=== PATIENT | female | born 1995 | race Caucasian/White ===

== ENCOUNTER 2016-08-21 13:27 | Emergency (ER) | payer BC ==
[~2016-08-21] VITALS: Ht 160 cm; Wt 57.2 kg
[2016-08-21 13:52] VITALS: Ht 160 cm; Wt 57.2 kg
[2016-08-21] MEDS ORDERED: ALUMINUM/MAGNESIUM SUSP 30 ML UDC PO STA (14:06)
[2016-08-21] MEDS ORDERED: LIDOCAINE HCL 2% VISC SOLN 20 ML UDC PO STA (14:06)
[2016-08-21] MEDS ORDERED: SODIUM CHLORIDE 0.9% 1000ML 1,000 ML IV STA ×2 (14:06→16:07)
[2016-08-21 14:38] LABS: BASO % 0.8 %; BASO ABS # 0.04 K/uL (0-0.2); COMPLETE YES; IG% 0.4 %; LYMPH % 9.5 %; LYMPH ABS # 0.48 K/uL (1.2-3.4); MEAN CELL VOLUME 86.3 fL (80-100); MEAN CORPUSCULAR HEMOGLOBIN 29.9 pg (25-34); MEAN CORPUSCULAR HGB CONC 34.6 g/dl (32-36); MEAN PLATELET VOLUME 10.1 fL (7.4-10.4); MONO % 5.2 %; NEUT % 83.1 %; PLATELET COUNT 185 K/uL (130-400); RED BLOOD COUNT 4.52 M/uL (4.2-5.4); WHITE BLOOD COUNT 5.03 K/uL (4.8-10.8)
[2016-08-21 14:49] LABS: PROTHROMBIN TIME (PATIENT) 10.2 SECONDS (9.0-12.0)
[2016-08-21] MEDS ORDERED: BCPILLS PO (14:56)
[2016-08-21 15:00] LABS: ALT/SGPT 16 U/L (12-78); AST/SGOT 12 U/L (15-37); BLOOD UREA NITROGEN 11 mg/dl (7-18); BUN/CREATININE RATIO 13.3 (10-20); CALCIUM 8.7 mg/dl (8.5-10.1); CARBON DIOXIDE 25 mmol/L (21-32); CHLORIDE 102 mmol/L (98-107); CREATININE 0.85 mg/dl (0.60-1.20); GLUCOSE 100 mg/dl (70-99); SODIUM 138 mmol/L (136-145)
--- NOTE | 2016-08-21 15:03 | DIAGNOSTIC IMAGING REPORT ---
CHEST 2 VIEWS ROUTINE CLINICAL HISTORY: Cough. Fever. COMPARISON STUDY: No previous studies for comparison. FINDINGS: Lung volumes are normal. There is no pneumothorax or pleural effusion. Cardiac size is normal. Mediastinal contours are normal. There is no evidence of pulmonary edema. IMPRESSION: No acute cardiopulmonary findings. Electronically signed by: Asad Ingram M.D. 08/21/2016 3:02 PM Dictated Date/Time: 08/21/2016 3:01 PM
[2016-08-21 15:05] LABS: ALKALINE PHOSPHATASE 50 U/L (45-117)
[2016-08-21] MEDS ORDERED: HYDROCODONE/ACETAMOPHEN 5/325MG TAB PO STA (15:06)
[2016-08-21] MEDS ORDERED: OPTIRAY 320 IV PRN (15:15)
[2016-08-21 15:52] VITALS: BP 112/65; O2SAT 96; O2SAT 97
--- NOTE | 2016-08-21 15:54 | DIAGNOSTIC IMAGING REPORT ---
CT ANGIOGRAM OF THE CHEST CLINICAL HISTORY: Atypical chest pain. COMPARISON STUDY: Chest radiograph dated 08/21/2016. TECHNIQUE: Following the IV administration of 9 the cc of Optiray 320, CT angiogram of the chest was performed from the upper abdomen to the thoracic inlet utilizing the pulmonary embolus protocol. Images are reviewed in the axial, sagittal, and coronal planes. 3-D MIPS images are created and assessed. IV contrast was administered without complication. The examination is modestly degraded by motion artifact. CT DOSE: 182.59 mGy.cm FINDINGS: Thyroid: Imaged portions of the thyroid gland are normal in size and attenuation. Thoracic aorta: The thoracic aorta is normal in caliber and demonstrates standard 3-vessel arch anatomy. No dissection is seen. Pulmonary vasculature: The pulmonary trunk is normal in caliber. There are no filling defects identified in main, lobar, or segmental pulmonary branches to suggest pulmonary embolus. Heart: The heart is normal in size and configuration, and without pericardial effusion. Lungs and pleural spaces: Evaluation of the lung parenchyma is modestly degraded by large part ring motion artifact. The lungs and pleural spaces are clear. The trachea and central airways are patent. Mediastinum: There is no mediastinal lymphadenopathy. Chanel: Clear. Axillae: There is no axillary lymphadenopathy. Upper abdomen: Partially visualized upper abdominal viscera is within normal limits. Skeletal structures: No lytic or blastic bony lesions are seen. IMPRESSION: 1. There is no evidence of pulmonary embolus in the main, lobar, or segmental pulmonary arteries. 2. The lungs are clear. Electronically signed by: Koko Daniels M.D. 08/21/2016 3:53 PM Dictated Date/Time: 08/21/2016 3:49 PM
[2016-08-21 15:55] VITALS: PULSE 127
[2016-08-21] MEDS ORDERED: IBUPROFEN 600 MG TAB PO STA (16:59)
[2016-08-21 17:06] VITALS: TEMP 37.6
--- NOTE | 2016-08-21 17:20 | EMERGENCY ROOM VISIT NOTE ---
History First contact with patient: 13:57 Chief Complaint: FLU LIKE SX Stated Complaint: CHEST PAIN, FEVER,DIF BREATHING,CHILLS,COUGH,ACHE History of Present Illness The patient is a 21 year old female who presents to the Emergency Room being sent here by urgent care with complaints of chest pain which began last night after having a bout with severe reflux for 3 days. The patient states that she had burning in the chest, nausea and vomiting for 3 days. She was taking her Prilosec and Tums with little relief. She states that subsided last evening and then she started getting the pain in the chest which is constant which she describes as burning and sharp in nature. The patient denies any chest tightness. The patient was seen in urgent care and told to come to the emergency room for further evaluation. The patient states when she woke up this morning she had a dry cough and a temperature of 100.6. The patient denies any ear pain but does admit to sore throat secondary to coughing and throwing up. The patient denies any head congestion or runny nose. The patient admits she feels achy all over. The patient has a history of asthma. She has not used any of her inhalers. The patient admits to being on control pills. She denies smoking. The patient denies any recent travel or recent surgery. The patient denies any recent leg pain. She is a college student. Review of Systems 10 system review was performed and was negative unless stated otherwise history of present illness. Past Medical/Surgical History Asthma, reflux Social History Smoking Status: Never Smoker Smokeless Tobacco Use: No Marital Status: single Housing Status: lives with roommate Occupation Status: [employer] student Current/Historical Medications Scheduled Control Pills ( Control Pills), 1 TAB PO DAILY Allergies Coded Allergies: No Known Allergies (Unverified , 08/21/16) Physical Exam Vital Signs Date Time Temp Pulse Resp B/P Pulse Ox O2 Delivery O2 Flow Rate FiO2 08/21/16 17:06 37.6 08/21/16 15:55 127 08/21/16 15:52 97 Room Air 08/21/16 15:52 123 18 112/65 96 Room Air 08/21/16 13:52 37.6 125 20 111/71 100 Room Air Physical Exam PHYSICAL EXAM: Vital Signs were reviewed. Temperature 37.6, blood pressure 111/ 71, pulse 125, respirations 20: Reviewed Nurse's notes and agree. Oxygen saturation is 100 % on room air which is normal . GENERAL: 21-year-old female appears in no acute distress. MENTAL STATUS: Alert, oriented, coherent. EARS: Canals clear. TMs good light reflex, no erythema or fluid level noted. NOSE: Nasal mucosa with moderate erythema engorgement. PHARYNX: No erythema, no edema noted. No exudate noted. Airway is adequate. NECK: Supple, non-tender. No lymphadenopathy noted. LUNGS: Clear to auscultation without wheezes rales or rhonchi. CARDIAC: Regular rate and rhythm without murmur. SKIN: No rashes noted. LOWER EXTREMITIES: No cyanosis or edema noted. Calves are nontender. No palpable cords noted. Negative Homans bilaterally. Medical Decision & Procedures ER Provider Diagnostic Interpretation: CHEST 2 VIEWS ROUTINE CLINICAL HISTORY: Cough. Fever. COMPARISON STUDY: No previous studies for comparison. FINDINGS: Lung volumes are normal. There is no pneumothorax or pleural effusion. Cardiac size is normal. Mediastinal contours are normal. There is no evidence of pulmonary edema. IMPRESSION: No acute cardiopulmonary findings. Electronically signed by: Asad Ingram M.D. CT ANGIOGRAM OF THE CHEST CLINICAL HISTORY: Atypical chest pain. COMPARISON STUDY: Chest radiograph dated 08/21/2016. TECHNIQUE: Following the IV administration of 9 the cc of Optiray 320, CT angiogram of the chest was performed from the upper abdomen to the thoracic inlet utilizing the pulmonary embolus protocol. Images are reviewed in the axial, sagittal, and coronal planes. 3-D MIPS images are created and assessed. IV contrast was administered without complication. The examination is modestly degraded by motion artifact. CT DOSE: 182.59 mGy.cm FINDINGS: Thyroid: Imaged portions of the thyroid gland are normal in size and attenuation. Thoracic aorta: The thoracic aorta is normal in caliber and demonstrates standard 3-vessel arch anatomy. No dissection is seen. Pulmonary vasculature: The pulmonary trunk is normal in caliber. There are no filling defects identified in main, lobar, or segmental pulmonary branches to suggest pulmonary embolus. Heart: The heart is normal in size and configuration, and without pericardial effusion. Lungs and pleural spaces: Evaluation of the lung parenchyma is modestly degraded by large part ring motion artifact. The lungs and pleural spaces are clear. The trachea and central airways are patent. Mediastinum: There is no mediastinal lymphadenopathy. Chanel: Clear. Axillae: There is no axillary lymphadenopathy. Upper abdomen: Partially visualized upper abdominal viscera is within normal limits. Skeletal structures: No lytic or blastic bony lesions are seen. IMPRESSION: 1. There is no evidence of pulmonary embolus in the main, lobar, or segmental pulmonary arteries. 2. The lungs are clear. Electronically signed by: Koko Daniels M.D. 08/21/2016 3:53 PM Dictated Date/Time: 08/21/2016 3:49 PM 08/21/2016 3:02 PM Laboratory Results 08/21/16 14:25 Red Blood Count 4.52, Mean Corpuscular Volume 86.3, Mean Corpuscular Hemoglobin 29.9, Mean Corpuscular Hemoglobin Concent 34.6, Mean Platelet Volume 10.1, Neutrophils (%) (Auto) 83.1, Lymphocytes (%) (Auto) 9.5, Monocytes (%) (Auto) 5.2, Eosinophils (%) (Auto) 1.0, Basophils (%) (Auto) 0.8, Neutrophils # (Auto) 4.18, Lymphocytes # (Auto) 0.48, Monocytes # (Auto) 0.26, Eosinophils # (Auto) 0.05, Basophils # (Auto) 0.04 08/21/16 14:25 Test 08/21/16 14:25 08/21/16 14:33 08/21/16 14:45 White Blood Count 5.03 K/uL (4.8-10.8) Red Blood Count 4.52 M/uL (4.2-5.4) Hemoglobin 13.5 g/dL (12.0-16.0) Hematocrit 39.0 % (37-47) Mean Corpuscular Volume 86.3 fL (80-100) Mean Corpuscular Hemoglobin 29.9 pg (25-34) Mean Corpuscular Hemoglobin Concent 34.6 g/dl (32-36) Platelet Count 185 K/uL (130-400) Mean Platelet Volume 10.1 fL (7.4-10.4) Neutrophils (%) (Auto) 83.1 % Lymphocytes (%) (Auto) 9.5 % Monocytes (%) (Auto) 5.2 % Eosinophils (%) (Auto) 1.0 % Basophils (%) (Auto) 0.8 % Neutrophils # (Auto) 4.18 K/uL (1.4-6.5) Lymphocytes # (Auto) 0.48 K/uL (1.2-3.4) Monocytes # (Auto) 0.26 K/uL (0.11-0.59) Eosinophils # (Auto) 0.05 K/uL (0-0.5) Basophils # (Auto) 0.04 K/uL (0-0.2) RDW Standard Deviation 37.5 fL (36.4-46.3) RDW Coefficient of Variation 12.0 % (11.5-14.5) Immature Granulocyte % (Auto) 0.4 % Immature Granulocyte # (Auto) 0.02 K/uL (0.00-0.02) Prothrombin Time 10.2 SECONDS (9.0-12.0) Prothromb Time International Ratio 1.0 (0.9-1.1) Activated Partial Thromboplast Time 26.6 SECONDS (21.0-31.0) Partial Thromboplastin Ratio 1.0 Anion Gap 11.0 mmol/L (3-11) Est Creatinine Clear Calc Drug Dose 87.3 ml/min Estimated GFR () 114.3 Estimated GFR (Non- 98.6 BUN/Creatinine Ratio 13.3 (10-20) Calcium Level 8.7 mg/dl (8.5-10.1) Total Bilirubin 0.3 mg/dl (0.2-1) Direct Bilirubin < 0.1 mg/dl (0-0.2) Aspartate Amino Transf (AST/SGOT) 12 U/L (15-37) Alanine Aminotransferase (ALT/SGPT) 16 U/L (12-78) Alkaline Phosphatase 50 U/L (45-117) Total Creatine Kinase 63 U/L (26-192) Creatine Kinase MB < 0.5 ng/ml (0.5-3.6) Creatine Kinase MB Ratio (0-3.0) Total Protein 7.3 gm/dl (6.4-8.2) Albumin 3.9 gm/dl (3.4-5.0) Lipase 132 U/L (73-393) Bedside D-Dimer > 450 ng/mlFEU (0-450) Bedside Troponin I 0.000 ng/ml (0-0.045) Influenza Type A Antigen Neg for Influ A (NEG) Influenza Type B Antigen Neg for Influ B (NEG) Medications Administered Medications (Trade) Dose Ordered Sig/Luke Route Start Time Stop Time Status Last Admin Dose Admin Sodium Chloride (Nss 1000ml) 1,000 ml @ 999 mls/hr Q1H1M STAT IV 08/21/16 14:06 08/21/16 15:06 DC 08/21/16 14:06 999 MLS/HR Lidocaine HCl (Viscous Lidocaine 2% Soln) 10 ml NOW STAT PO 08/21/16 14:06 08/21/16 14:09 DC 08/21/16 14:06 10 ML Al Hydroxide/Mg Hydroxide 30 ml 30 ml NOW STAT PO 08/21/16 14:06 08/21/16 14:09 DC 08/21/16 14:06 30 ML Sodium Chloride (Nss 1000ml) 1,000 ml @ 999 mls/hr Q1H1M STAT IV 08/21/16 16:07 08/21/16 17:07 DC 08/21/16 16:07 999 MLS/HR Ibuprofen (Motrin Tab) 600 mg NOW STAT PO 08/21/16 16:59 08/21/16 17:00 DC 08/21/16 16:59 600 MG ECG Indication: chest pain Rhythm: sinus tachycardia Findings: no acute ischemic change ED Course The patient was evaluated. IV access was obtained. The patient was placed on a monitor and continuous pulse ox. EKG was ordered and interpreted by myself as above with sinus tachycardia but no acute ischemic change. Troponin was negative.. Chest x-ray was ordered and interpreted by the radiologist and myself as above without any acute findings. The patient was given 1 L normal saline wide-open. The patient was given a GI cocktail. The patient felt better after the GI cocktail but still was complaining of some chest pain therefore was given [place] 5/325 mg one tablet by mouth for pain. CBC and differential, renal profile, LFTs and lipase levels were ordered. Coags, CK-MB , [id number] d-dimer [id number] troponin was ordered. The patient's CBC differential and renal profile were unremarkable. The patient's d-dimer was elevated therefore a CT of the chest for PE was ordered and interpreted by the radiologist as above without any acute findings. The patient was reevaluated. She was still tachycardiac and therefore was given another liter of fluids wide open. Rapid influenza was negative for influenza A and influenza B. The patient was reevaluated. The patient was still tachycardic but she was feeling much better. The patient still had a slightly elevated temp of 100.6. She was given Motrin 600 mg by mouth. The patient was reevaluated was feeling better. The patient was discharged home in stable condition. Medical Decision Differential diagnosis include influenza, PE, GERD, pneumonia, URI, asthma attack, acute AL Impression Primary Impression: Upper respiratory infection Departure Information Dispostion Home / Self-Care Condition GOOD Referrals No Doctor, Assigned (PCP) Forms HOME CARE DOCUMENTATION FORM, IMPORTANT VISIT INFORMATION Patient Instructions My [facility] Additional Instructions Push fluids. Tylenol and/or ibuprofen every 6 hours. Would recommend if you are running a fever alternating between the Tylenol and the ibuprofen every 3 hours. May use [id number] symptomatic treatment. Use your inhaler as needed for chest tightness. If symptoms are not improving in 3-4 days, follow- up with [facility] or return to ER. Problem Qualifiers Primary Impression: Upper respiratory infection URI type: unspecified viral URI Qualified Codes: J06.9 - Acute upper respiratory infection, unspecified; B97.89 - Other viral agents as the cause of diseases classified elsewhere
== END 2016-08-21 17:28 | disposition home or self-care (01) ==
LOC: C.EDB 13:31 → C.EDC 17:28
DX: J06.9 Acute upper respiratory infection, unspecified (principal); K21.9 Gastro-esophageal reflux disease without esophagitis; J45.909 Unspecified asthma, uncomplicated

== ENCOUNTER 2016-08-24 12:02 | Emergency (ER) | payer BC ==
[~2016-08-24] VITALS: Ht 161.3 cm; Wt 55.7 kg
[~2016-08-24 12:02] MED LIST: BCPILLS PO
[2016-08-24 12:05] VITALS: Ht 161.3 cm; Wt 55.7 kg
[2016-08-24] MEDS ORDERED: ZNT/150 PO (12:26)
[2016-08-24] MEDS ORDERED: ACET500C14 PO (12:26)
[2016-08-24] MEDS ORDERED: ONDANSETRON INJ 2 MG/ML 2 ML VIAL IV STA (12:55)
[2016-08-24] MEDS ORDERED: ALBUT/IPRATROP 3MG/0.5MG NEB 3 ML VIAL INH STA ×2 (12:55→16:04)
[2016-08-24] MEDS ORDERED: SODIUM CHLORIDE 0.9% 1000ML 2,000 ML IV STA (12:55)
[2016-08-24] MEDS ORDERED: METHYLPREDNISOLONE 125 MG VIAL IV STA (12:55)
[2016-08-24] MEDS ORDERED: PANTOprazole INJ 40 MG in SYRINGE 0 ML IV ONE (13:00)
--- NOTE | 2016-08-24 13:02 | EMERGENCY ROOM VISIT NOTE ---
History Report prepared by Jasvir: Ayanna Toure Under the Supervision of: Dr. Jami Cruz M.D. First contact with patient: 12:31 Chief Complaint: FLU LIKE SX Stated Complaint: FEVER, VOMITING, ACHES/PAINS, N, COUGH, CHILLS History of Present Illness The patient is a 21 year old female who presents to the Emergency Room with complaints of a persistent illness that began several days ago. She currently rates her discomfort as a 7/10 in severity. The patient states that she was here Sunday with flu-like symptoms. She noted chest pain and a fever. The patient states that she was instructed to follow up if she didn't get better. She states that she went to [facility] today and was referred to the emergency department for further evaluation. Today the patient notes a cough, vomiting, nausea, fever, body aches, weakness, and a heaviness feeling throughout her body. She states that she has a history of reflux in the past and in July she was being worked up for her symptoms. The patient states that recently she has only been able to keep down Gingerale and soup. She notes that she has had multiple sick contacts recently around her roommates. The patient notes diarrhea last week. She denies being on any current steroids. Source of History: patient Onset: several days ago Position: other (global) Symptom Intensity: 7/10 Quality: other (illness) Timing: other (persistent) Associated Symptoms: + chest pain, + cough, + diarrhea, + fevers, + nausea, + vomiting, + weakness Note: Associated Symptoms: body aches, heaviness in body Review of Systems See HPI for pertinent positives & negatives. A total of 10 systems reviewed and were otherwise negative. Past Medical & Surgical Medical Problems: (1) Asthma Family History Cancer Heart disease Hypertension Lung disease Social History Smoking Status: Never Smoker Smokeless Tobacco Use: No Alcohol Use: none Marital Status: single Housing Status: lives with roommate Occupation Status: [employer] student Current/Historical Medications Scheduled Control Pills ( Control Pills), 1 TAB PO DAILY Oseltamivir Phosphate (Tamiflu), 1 CAP PO BID Ranitidine Hcl (Zantac), 150 MG PO DAILY Miscellaneous Medications Acetaminophen (Extra Strength Acetaminop), 2 TAB PO Allergies Coded Allergies: No Known Allergies (Unverified , 08/24/16) Physical Exam Vital Signs Date Time Temp Pulse Resp B/P Pulse Ox O2 Delivery O2 Flow Rate FiO2 08/24/16 16:48 97 20 114/74 97 08/24/16 14:42 37.5 08/24/16 14:38 36.9 109 16 112/72 100 Room Air 08/24/16 14:21 114 08/24/16 14:14 97 18 117/85 97 Room Air 08/24/16 14:08 110 22 91/73 96 Room Air 106 113/76 110 117/85 08/24/16 12:05 37.1 134 16 102/75 97 Room Air Physical Exam Vital signs reviewed. General: Generally well-appearing female, in no significant distress. Dry cough HEENT: No scleral icterus, PERRLA, neck supple. Posterior oropharynx is clear. Atraumatic. Cardiovascular: Regular rate and rhythm, no extra sounds. Pulmonary:Faint scattered wheezes bilaterally, normal work of breathing. Abdomen: Soft, nontender, nondistended, positive bowel sounds. Musculoskeletal: Atraumatic, no peripheral edema. Neurologic: Patient awake alert and oriented x 3, full strength in all 4 extremities. Cranial nerves 2 through 12 grossly intact. Skin: Warm, dry, no rash Medical Decision & Procedures Laboratory Results 08/24/16 13:35 Red Blood Count 4.51, Mean Corpuscular Volume 86.7, Mean Corpuscular Hemoglobin 30.6, Mean Corpuscular Hemoglobin Concent 35.3, Mean Platelet Volume 10.8 08/24/16 13:35 Test 08/24/16 13:35 08/24/16 14:20 White Blood Count 1.96 K/uL (4.8-10.8) Red Blood Count 4.51 M/uL (4.2-5.4) Hemoglobin 13.8 g/dL (12.0-16.0) Hematocrit 39.1 % (37-47) Mean Corpuscular Volume 86.7 fL (80-100) Mean Corpuscular Hemoglobin 30.6 pg (25-34) Mean Corpuscular Hemoglobin Concent 35.3 g/dl (32-36) Platelet Count 136 K/uL (130-400) Mean Platelet Volume 10.8 fL (7.4-10.4) RDW Standard Deviation 38.7 fL (36.4-46.3) RDW Coefficient of Variation 12.0 % (11.5-14.5) Neutrophils % (Manual) 40.0 % Lymphocytes % (Manual) 32.2 % Variant Lymphocytes % (manual) 16.7 % Monocytes % (Manual) 10.0 % Basophils % (Manual) 1.1 % Neutrophils # (Manual) 0.78 K/uL (1.4-6.5) Total Absolute Neutrophils 0.78 K/uL (1.4-6.5) Lymphocytes # (Manual) 0.63 K/uL (1.2-3.4) Absolute Variant Lymphocytes 0.33 K/uL Total Absolute Lymphocytes 0.96 K/uL (1.2-3.4) Monocytes # (Manual) 0.20 K/uL (0.11-0.59) Basophils # (Manual) 0.02 K/uL (0-0.2) Red Blood Cell Morphology Unremarkable Anion Gap 6.0 mmol/L (3-11) Est Creatinine Clear Calc Drug Dose 93.7 ml/min Estimated GFR () 121.2 Estimated GFR (Non- 104.6 BUN/Creatinine Ratio 10.3 (10-20) Calcium Level 8.7 mg/dl (8.5-10.1) Total Bilirubin 0.2 mg/dl (0.2-1) Direct Bilirubin < 0.1 mg/dl (0-0.2) Aspartate Amino Transf (AST/SGOT) 14 U/L (15-37) Alanine Aminotransferase (ALT/SGPT) 16 U/L (12-78) Alkaline Phosphatase 41 U/L (45-117) Troponin I < 0.015 ng/ml (0-0.045) Total Protein 7.2 gm/dl (6.4-8.2) Albumin 3.6 gm/dl (3.4-5.0) Influenza Type A (RT-PCR) POS for Influ A (NEG) Influenza Type B (RT-PCR) Neg for Influ B (NEG) Laboratory results per my review. Medications Administered Medications (Trade) Dose Ordered Sig/Luke Route Start Time Stop Time Status Last Admin Dose Admin Pantoprazole Sodium/Syringe (Protonix Inj/ Syringe) 10 ml @ 5 mls/min NOW ONCE IV 08/24/16 13:00 08/24/16 13:01 DC 08/24/16 14:04 5 MLS/MIN Ondansetron HCl 4 mg 4 mg NOW STAT IV 08/24/16 12:55 08/24/16 13:00 DC 08/24/16 14:03 4 MG Sodium Chloride (Nss 1000ml) 2,000 ml @ 999 mls/hr Q2H1M STAT IV 08/24/16 12:55 08/24/16 14:55 DC 08/24/16 14:04 999 MLS/HR Methylprednisolone Sodium Succinate (Solu-Medrol IV) 125 mg NOW STAT IV 08/24/16 12:55 08/24/16 13:00 DC 08/24/16 14:03 125 MG Albuterol/ Ipratropium (Duoneb) 3 ml NOW STAT INH 08/24/16 12:55 08/24/16 13:01 DC 08/24/16 14:04 3 ML Albuterol/ Ipratropium (Duoneb) 3 ml STK-MED ONCE .ROUTE 08/24/16 16:03 08/24/16 16:05 DC 08/24/16 16:07 3 ML ECG Indication: chest pain, SOB/dyspnea Rate (beats per minute): 95 Rhythm: normal sinus Findings: other (Poor quality baseloine for interpreation, diffuse T wave flattening, QTC 505) Comparison ECG Date: 08/21/16 Change: no significant change ED Course 1254: Past medical records reviewed. The patient was evaluated in room B3B. A complete history and physical examination was performed. 1255: Ordered Duoneb 3 ml INH, Solu-Medrol IV 125 mg IV, Sodium Chloride 2000 ml @ 999 mls/hr IV, Zofran Inj 4 mg IV. 1300: Ordered Pantoprazole Sodium 40 mg/Syringe 10 ml @ 5 mls/min. 1430: I reevaluated the patient and she is resting comfortably. I discussed the exam findings with her and I discussed the treatment plan. She verbalized complete understanding and agreement. She will be evaluated for further treatment. 1449: I reevaluated the patient and she is resting comfortably. After a long discussion with her and her mother, we believe that it would be in the patient s best interest to go home. They verbalized complete understanding and agreement. Her temperature is normal. She is ready to go home. 1604: Ordered Duoneb 3 ml INH. 1643: I Reevaluated the patient and informed her of her positive influenza finding. Medical Decision influenza, other viral illness, pneumonia, urinary tract infection, metabolic abnormality, medication effect, cellulitis, meningitis, intra-abdominal source. This pt was evaluated and appeared to be in no distress. IV access was obtained and lab work was drawn. PT was medicated with IV protonix as she was c /o gastritis and vomiting. She has a h/o severe GERD. Pt was medicated with IVF and zofran for nausea. Pt was given a duoneb tx and IV solumedral. Lab work reveals a neutropenia, likely viral in origin. Pt no longer has a fever. I do not suspect a secondary infection. I discussed the case with the pt and her mother. She will be placed on tamiflu for influenza A + testing. She was given a mask and d/c to have close f/u and repeat testing with her PCP in 2 days. Pt was felt to be more at risk with a hospitalization and possibility of nosocomial infections. They expressed an understanding and agreed with the plan. Impression Primary Impression: Neutropenia Additional Impression: Influenza A Scribe Attestation The scribe's documentation has been prepared under my direction and personally reviewed by me in its entirety. I confirm that the note above accurately reflects all work, treatment, procedures, and medical decision making performed by me. Departure Information Dispostion Home / Self-Care Prescriptions Oseltamivir Phosphate (Tamiflu) 75 Mg Cap 1 CAP PO BID for 5 Days, #10 CAP Prov: Jami Cruz M.D. 08/24/16 Referrals Zana Garcia M.D. (PCP) Forms HOME CARE DOCUMENTATION FORM, IMPORTANT VISIT INFORMATION Patient Instructions My [facility] Additional Instructions Diagnosis: Viral upper respiratory infection, neutropenia Drink plenty of clear fluids. Tamiflu 75 mg twice daily for 5 days. Avoid infection and wear a mask when around other people. Avoid sick contacts. Follow-up with your pourer buggy ladle in 48 hours for repeat CBC with differential. Watch for signs of infection. If something develops (recurrent fevers), seek medical attention. Return to the ER for worsening of symptoms or any medical concerns. Problem Qualifiers Primary Impression: Neutropenia Neutropenia type: due to infection Qualified Codes: D70.3 - Neutropenia due to infection
[2016-08-24 14:07] LABS: ALT/SGPT 16 U/L (12-78); AST/SGOT 14 U/L (15-37); BLOOD UREA NITROGEN 8 mg/dl (7-18); BUN/CREATININE RATIO 10.3 (10-20); CALCIUM 8.7 mg/dl (8.5-10.1); CARBON DIOXIDE 30 mmol/L (21-32); CHLORIDE 103 mmol/L (98-107); CREATININE 0.81 mg/dl (0.60-1.20); GLUCOSE 95 mg/dl (70-99); HEMATOCRIT 39.1 % (37-47); MEAN CELL VOLUME 86.7 fL (80-100); MEAN CORPUSCULAR HEMOGLOBIN 30.6 pg (25-34); MEAN CORPUSCULAR HGB CONC 35.3 g/dl (32-36); MEAN PLATELET VOLUME 10.8 fL (7.4-10.4); PLATELET COUNT 136 K/uL (130-400); POTASSIUM 3.8 mmol/L (3.5-5.1); RED BLOOD COUNT 4.51 M/uL (4.2-5.4); SODIUM 139 mmol/L (136-145); WHITE BLOOD COUNT 1.96 K/uL (4.8-10.8)
[2016-08-24 14:10] LABS: ALKALINE PHOSPHATASE 41 U/L (45-117)
[2016-08-24 14:23] LABS: BASO ABS # 0.02 K/uL (0-0.2); BASOPHIL % 1.1 %; COMPLETE YES; LYMPH ABS # 0.63 K/uL (1.2-3.4); LYMPHOCYTE % 32.2 %; VARIANT LYM ABS # 0.33 K/uL; VARIANT LYMPHOCYTE % 16.7 %
[2016-08-24 14:42] VITALS: TEMP 37.5
[2016-08-24] MEDS ORDERED: ALBUT/IPRATROP 3MG/0.5MG NEB 3 ML VIAL ONE (16:03)
[2016-08-24 16:38] LABS: INFLUENZA B PCR Neg for Influ B (NEG)
[2016-08-24 16:43] LABS: INFLUENZA A PCR POS for Influ A (NEG)
[2016-08-24 16:48] VITALS: BP 114/74; PULSE 97; O2SAT 97
[2016-08-24] MEDS ORDERED: NF406 PO (17:00)
== END 2016-08-24 16:50 | disposition home or self-care (01) ==
LOC: C.EDB 12:04
DX: D70.3 Neutropenia due to infection (principal); J09.X2 Influenza due to identified novel influenza A virus with other respiratory manifestations; K21.9 Gastro-esophageal reflux disease without esophagitis; Z82.49 Family history of ischemic heart disease and other diseases of the circulatory system; Z79.3 Long term (current) use of hormonal contraceptives

== ENCOUNTER 2016-09-17 14:03 | Emergency (ER) | payer BC ==
[~2016-09-17] VITALS: Ht 160 cm; Wt 55.5 kg
[~2016-09-17 14:03] MED LIST changes: +ACET500C14 PO; +ZNT/150 PO
[2016-09-17 14:11] VITALS: TEMP 36.9; Ht 160 cm; Wt 55.5 kg
--- NOTE | 2016-09-17 15:13 | EMERGENCY ROOM VISIT NOTE ---
History Report prepared by Jasvir: Preston Torres Under the Supervision of: Dr. Koko Liz M.D. First contact with patient: 14:54 Chief Complaint: OTHER COMPLAINT Stated Complaint: LEFT LEG RED [place] History of Present Illness The patient is a 21 year old female who presents to the Emergency Room with concerns over red spotting on her feet and red streaking on her left leg, which she noticed shortly prior to arrival. The patient was in the Emergency Department two weeks ago for influenza, and was told that her white blood cell count was low. She was concerned that the streaking on her legs could be from an infection. She denies any recent fevers. The patient has no further complaints at this time. The legs do not itch. Source of History: patient Onset: Shortly [employer] Position: leg (left), foot (bilateral) Quality: other (Red spotting/streaking) Associated Symptoms: No fevers Review of Systems See HPI for pertinent positives & negatives. A total of 10 systems reviewed and were otherwise negative. Past Medical & Surgical Medical Problems: (1) Asthma Family History Cancer Heart disease Hypertension Lung disease Social History Smoking Status: Never Smoker Alcohol Use: none Marital Status: single Housing Status: lives with roommate Occupation Status: [employer] student Current/Historical Medications Scheduled Control Pills ( Control Pills), 1 TAB PO DAILY Allergies Coded Allergies: No Known Allergies (Unverified , 08/24/16) Physical Exam Vital Signs Date Time Temp Pulse Resp B/P Pulse Ox O2 Delivery O2 Flow Rate FiO2 09/17/16 15:58 95 16 106/71 98 09/17/16 14:11 36.9 109 18 125/71 98 Room Air Physical Exam GENERAL: Patient is in no acute distress. HEENT: No acute trauma, normocephalic atraumatic, mucous membranes moist, no nasal congestion, no scleral icterus. NECK: No stridor, no adenopathy, no meningismus, trachea is midline. LUNGS: Clear to auscultation bilaterally, no wheeze, no rhonchi, breath sounds equal. HEART: Without murmurs gallops or rubs, regular rate and rhythm. ABDOMEN: Soft, nontender, bowel sounds positive, no hernias, no peritonitis. EXTREMITIES: No cyanosis or edema, full range of motion of all the joints without pain or difficulty, no signs for acute trauma. NEUROLOGIC: Oriented x 3, no acute motor or sensory deficits, no focal weakness. SKIN: There are tiny flat, slightly erythematous lesions on the feet with a linear red streak up the front of the left leg spreading across the left knee. Lesions were cleared with an alcohol pad. No petechia. No cellulitis. Medical Decision & Procedures Laboratory Results 09/17/16 15:15 Red Blood Count 4.59, Mean Corpuscular Volume 85.0, Mean Corpuscular Hemoglobin 30.5, Mean Corpuscular Hemoglobin Concent 35.9, Mean Platelet Volume 9.9, Neutrophils (%) (Auto) 60.2, Lymphocytes (%) (Auto) 27.7, Monocytes (%) (Auto) 10.7, Eosinophils (%) (Auto) 0.8, Basophils (%) (Auto) 0.6, Neutrophils # (Auto ) 3.71, Lymphocytes # (Auto) 1.71, Monocytes # (Auto) 0.66, Eosinophils # (Auto ) 0.05, Basophils # (Auto) 0.04 Test 09/17/16 15:15 White Blood Count 6.17 K/uL (4.8-10.8) Red Blood Count 4.59 M/uL (4.2-5.4) Hemoglobin 14.0 g/dL (12.0-16.0) Hematocrit 39.0 % (37-47) Mean Corpuscular Volume 85.0 fL (80-100) Mean Corpuscular Hemoglobin 30.5 pg (25-34) Mean Corpuscular Hemoglobin Concent 35.9 g/dl (32-36) Platelet Count 228 K/uL (130-400) Mean Platelet Volume 9.9 fL (7.4-10.4) Neutrophils (%) (Auto) 60.2 % Lymphocytes (%) (Auto) 27.7 % Monocytes (%) (Auto) 10.7 % Eosinophils (%) (Auto) 0.8 % Basophils (%) (Auto) 0.6 % Neutrophils # (Auto) 3.71 K/uL (1.4-6.5) Lymphocytes # (Auto) 1.71 K/uL (1.2-3.4) Monocytes # (Auto) 0.66 K/uL (0.11-0.59) Eosinophils # (Auto) 0.05 K/uL (0-0.5) Basophils # (Auto) 0.04 K/uL (0-0.2) RDW Standard Deviation 37.6 fL (36.4-46.3) RDW Coefficient of Variation 12.3 % (11.5-14.5) Immature Granulocyte % (Auto) 0.0 % Immature Granulocyte # (Auto) 0.00 K/uL (0.00-0.02) Laboratory results reviewed by me. ED Course 1468: The patient was evaluated in room C4. A complete history and physical exam was performed. 1538: I reevaluated the patient at this time. I discussed results of the WBC count and discharge instructions: She verbalized understanding and agreement. The patient is ready for discharge. Medical Decision Differential diagnosis include: cellulitis, neutropenia, low platelet count, vasculitis, and hives. The patient presents with concerns for infection and rash on her lower extremities, especially the left lower extremity. The lesions did wipe off with alcohol, she was out last evening and I believe spilled something across her feet. There is no cellulitis, no evidence for petechiae. Because of the recent low white blood cell count, a CBC was drawn. CBC does not show any neutropenia, there is no anemia or low platelet count. The patient was reassured and discharged home. Impression Primary Impression: Rash Additional Impression: Leukopenia Scribe Attestation The scribe's documentation has been prepared under my direction and personally reviewed by me in its entirety. I confirm that the note above accurately reflects all work, treatment, procedures, and medical decision making performed by me. Departure Information Dispostion Home / Self-Care Referrals Zana Garcia M.D. (PCP) Forms HOME CARE DOCUMENTATION FORM, IMPORTANT VISIT INFORMATION, WORK / SCHOOL INSTRUCTIONS Patient Instructions [facility] Additional Instructions white count is normal today return with any concerns Problem Qualifiers
[2016-09-17 15:25] LABS: BASO % 0.6 %; BASO ABS # 0.04 K/uL (0-0.2); COMPLETE YES; EOS % 0.8 %; LYMPH % 27.7 %; LYMPH ABS # 1.71 K/uL (1.2-3.4); MEAN CORPUSCULAR HEMOGLOBIN 30.5 pg (25-34); MEAN CORPUSCULAR HGB CONC 35.9 g/dl (32-36); MEAN PLATELET VOLUME 9.9 fL (7.4-10.4); MONO % 10.7 %; NEUT % 60.2 %; PLATELET COUNT 228 K/uL (130-400); RED BLOOD COUNT 4.59 M/uL (4.2-5.4); WHITE BLOOD COUNT 6.17 K/uL (4.8-10.8)
[2016-09-17 15:58] VITALS: BP 106/71; PULSE 95; O2SAT 98
== END 2016-09-17 15:59 | disposition home or self-care (01) ==
LOC: C.EDB 14:06 → C.EDC 15:59
DX: R21 Rash and other nonspecific skin eruption (principal); D72.819 Decreased white blood cell count, unspecified; J45.909 Unspecified asthma, uncomplicated; Z79.3 Long term (current) use of hormonal contraceptives